=== PATIENT | male | born 1965 | race Caucasian/White ===

== ENCOUNTER 2018-08-16 15:32 | Emergency (ER) | payer BC ==
[2018-08-16] MEDS ORDERED: Azithromycin 250 MG Tab ONE (15:55)
--- NOTE | 2018-08-16 17:48 | ER ---
HISTORY OF PRESENT ILLNESS: A 53-year-old man here with complaints of feeling sick since Saturday. He has had head and chest congestion, occasional sore throat symptoms. He has a raspy harsh-sounding cough occasionally. No problems with shortness of breath or fever. Patient did try taking 1 dose of Levaquin from my an old prescription and he tells me that he does not think it did much, it may be helped a little. Cough has been productive of yellow and some whitish phlegm. OBJECTIVE: GENERAL APPEARANCE: The patient is awake and alert. No respiratory distress. He does have nasal congestion. VITAL SIGNS: Reviewed. He is currently afebrile. Pulse is 114, blood pressure 131/93. EARS: The patient's left TM is bulging and moderately erythematous. Left TM is bulging with yellow mucus behind the TM. Nares are mildly congested. Oral mucous membranes moist. Posterior pharynx shows drainage and minimal cobblestoning. The patient does not have maxillary or frontal sinus tenderness with palpation. NECK: Supple. LUNGS: Clear. SKIN: Warm and dry. DIAGNOSIS: 1. AOM left ear. 2. Mild borderline sinusitis. TREATMENT PLAN: A Z-Jonnathan will be given to the patient. Bvwa-kuh-[id number] medications should be used as needed. He is to rest another day or so. He is requesting a slip to return to work on Saturday, which I gave him. Followup is otherwise p.r.n. CRS/MODL /[id number]
== END 2018-08-16 16:00 | disposition home or self-care (01) ==
LOC: LB.ED 15:32
DX: H66.92 Otitis media, unspecified, left ear (principal); J32.9 Chronic sinusitis, unspecified
CPT/HCPCS: 99283; A9270

== ENCOUNTER 2020-12-23 18:46 | Emergency (ER) | payer BC ==
[2020-12-23] MEDS ORDERED: Sodium Chloride 0.9% 1,000 ML IV STA (20:20)
[2020-12-23] MEDS ORDERED: Metoprolol Tartrate 5 MG/5 ML SDV IVPUSH ONE (20:21)
--- NOTE | 2020-12-23 21:05 | EDM.PDOC ---
ED HPI GENERAL MEDICAL PROBLEM - General Chief Complaint: Cardiovascular Problem Stated Complaint: TACHYCARDIA Time Seen by Provider: 12/23/20 19:30 Source of Information: Reports: Patient History Limitations: Reports: No Limitations - History of Present Illness INITIAL COMMENTS - FREE TEXT/NARRATIVE: This patient presents to the emergency department for evaluation of just not feeling well and some dizziness. He states he was resting earlier this afternoon when at about 4 PM he noticed his heart rate had accelerated. He does wear a watch that records EKGs and noted that his heart rate was in the 130s to 140s. 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 He denies any chest pain, difficulty breathing, nausea, vomiting. He notes that he had similar episode approximately a year ago; he was seen by his primary care provider and a ZIO recording was done. He also had a stress test and echocardiogram. All of this work-up was negative. He was started on metoprolol 25 mg extended release at that time however he is not able to articulate the reason for the medication given his negative work-up. He decided to stop the medication approximately a month ago since there was no clear reason for it and he had no further episodes. Onset: Today, Sudden - Related Data Allergies Allergy/AdvReac Type Severity Reaction Status Date / Time No Known Allergies Allergy Verified 08/16/18 15:44 Home Meds: Home Meds Cetirizine HCl [Zyrtec] 10 mg PO DAILY 03/01/18 [History] Venlafaxine HCl [Venlafaxine ER] 75 mg PO DAILY 03/01/18 [History] Zolpidem [Ambien] 10 mg PO DAILY PRN 03/01/18 [History] Aspirin 81 mg PO DAILY 06/01/19 [History] Varenicline Tartrate [Chantix] 1 each PO ASDIRECTED 06/01/19 [History] Past Medical History Cardiovascular History: Reports: High Cholesterol Musculoskeletal History: Reports: Back Pain, Chronic Psychiatric History: Reports: Anxiety Dermatologic History: Reports: Urticaria Other Dermatologic History: Rash with urticaria perineal and upper and inner thighs - Infectious Disease History Infectious Disease History: Reports: Chicken Pox - Past Surgical History Dermatological Surgical History: Reports: None Social & Family History - Family History Family Medical History: No Pertinent Family History - Caffeine Use Caffeine Use: Reports: Coffee ED ROS GENERAL - Review of Systems Review Of Systems: See Below Constitutional: Denies: Fever, Decreased Appetite, Weight Gain HEENT: Reports: No Symptoms Respiratory: Reports: No Symptoms Cardiovascular: Denies: Chest Pain, Palpitations GI/Abdominal: Denies: Abdominal Pain, Diarrhea, Nausea, Vomiting Musculoskeletal: Reports: No Symptoms Skin: Reports: No Symptoms Neurological: Reports: No Symptoms ED EXAM, GENERAL - Physical Exam Exam: See Below Exam Limited By: No Limitations General Appearance: Alert, No Apparent Distress Eye Exam: Bilateral Eye: Normal Inspection, PERRL Ears: Normal External Exam Nose: Normal Inspection Throat/Mouth: Normal Inspection Head: Atraumatic, Normocephalic Neck: Normal Inspection Respiratory/Chest: No Respiratory Distress, Normal Breath Sounds, No Accessory Muscle Use Cardiovascular: Normal Peripheral Pulses, Tachycardia Extremities: Normal Inspection Neurological: Alert, Oriented Psychiatric: Normal Affect Skin Exam: Warm, Dry Course - Orders/Labs/Meds Orders: Active Orders 24 hr Category Date Time Status EKG Documentation Completion [RC] ASDIRECTED Care 12/23/20 20:05 Ordered Telemetry Monitoring [Cardiac Monitoring] [RC] .As Care 12/23/20 20:20 Ordered Directed BASIC METABOLIC PANEL,BMP [CHEM] Stat Lab 12/23/20 20:05 Ordered CBC WITH AUTO DIFF [HEME] Stat Lab 12/23/20 20:05 Ordered CORONAVIRUS COVID-19 RAPID [MOLEC] Stat Lab 12/23/20 20:19 Ordered TROPONIN I [CHEM] Stat Lab 12/23/20 20:05 Ordered TSH ULTRASENSITIVE [CHEM] Stat Lab 12/23/20 20:26 Stop Req Sodium Chloride 0.9% [Normal Saline] 1,000 ml Med 12/23/20 20:20 Ordered IV NOW EKG 12 Lead [EK] Stat Ther 12/23/20 20:05 Ordered Medication Orders Sodium Chloride (Normal Saline) 1,000 mls @ 999 mls/hr IV NOW STA Stop: 12/23/20 21:20 Meds: Medications Generic Name Dose Route Start Last Admin Trade Name Freq PRN Reason Stop Dose Admin Sodium Chloride 1,000 mls @ 999 mls/hr 12/23/20 20:20 Normal Saline IV 12/23/20 21:20 NOW STA Discontinued Medications Generic Name Dose Route Start Last Admin Trade Name Freq PRN Reason Stop Dose Admin Metoprolol Tartrate 5 mg 12/23/20 20:21 Metoprolol Tartrate 5 Mg/5 Ml Sdv IVPUSH 12/23/20 20:22 ONETIME ONE - Re-Assessments/Exams Free Text/Narrative Re-Assessment/Exam: 12/23/20 21:05 This patient presents to the ER with dizziness and tachycardia. EKG is consistent with a sinus tachycardia. He will be treated wart with oral medications to include 50 mg of metoprolol tonight and an additional 50 mg tomorrow morning. Labs are obtained and were within normal values. Because his physical exam and labs are normal and he is only having intermittent mild dizziness I did feel comfortable sending him home with follow-up tomorrow by phone. There is no evidence of pulmonary embolism, aortic distant dissection, acute coronary syndrome, RI, or ventricular arrhythmias. There is also no noted conduction abnormalities on EKG. I will follow up with him tomorrow and he was instructed to return to the ER should he have any new or concerning symptoms. Departure - Departure Time of Disposition: 21:00 Disposition: Home, Self-Care 01 Condition: Good Clinical Impression: Sinus tachycardia Instructions: Sinus Tachycardia Referrals: PCP,None [Primary Care Provider] - - My Orders Last 24 Hours: My Active Orders 12/23/20 20:05 EKG Documentation Completion [RC] ASDIRECTED BASIC METABOLIC PANEL,BMP [CHEM] Stat CBC WITH AUTO DIFF [HEME] Stat TROPONIN I [CHEM] Stat EKG 12 Lead [EK] Stat 12/23/20 20:19 CORONAVIRUS COVID-19 RAPID [MOLEC] Stat 12/23/20 20:20 Telemetry Monitoring [Cardiac Monitoring] [RC] .As Directed 12/23/20 20:20 Sodium Chloride 0.9% [Normal Saline] 1,000 ml IV NOW 12/23/20 20:26 TSH ULTRASENSITIVE [CHEM] Stat - Assessment/Plan Last 24 Hours: My Active Orders 12/23/20 20:05 EKG Documentation Completion [RC] ASDIRECTED BASIC METABOLIC PANEL,BMP [CHEM] Stat CBC WITH AUTO DIFF [HEME] Stat TROPONIN I [CHEM] Stat EKG 12 Lead [EK] Stat 12/23/20 20:19 CORONAVIRUS COVID-19 RAPID [MOLEC] Stat 12/23/20 20:20 Telemetry Monitoring [Cardiac Monitoring] [RC] .As Directed 12/23/20 20:20 Sodium Chloride 0.9% [Normal Saline] 1,000 ml IV NOW 12/23/20 20:26 TSH ULTRASENSITIVE [CHEM] Stat
== END 2020-12-23 20:30 | disposition home or self-care (01) ==
LOC: LB.ED 18:46
DX: R00.0 Tachycardia, unspecified (principal); R42 Dizziness and giddiness; Z79.82 Long term (current) use of aspirin; Z20.822 Contact with and (suspected) exposure to COVID-19
CPT/HCPCS: 36415; 80048; 84484; 85025; 93005; 93010; 99283; 99285-25; U0002